=== PATIENT | female | born 1940 | race Hispanic/Latino ===

== ENCOUNTER 2018-12-23 12:00 | Observation (INO) | payer MEDICARE ==
[~2018-12-23] VITALS: Ht 151.1 cm; Wt 57.8 kg
[2018-12-23 11:39] LABS: BASOPHILS % (AUTO) 0.8 % (0.0-5.0); EOSINOPHILS % (AUTO) 1.4 % (0.0-8.0); HEMATOCRIT 37.9 % (36-48); LYMPHOCYTES % (AUTO) 33.7 % (21.0-51.0); MEAN CORPUSCULAR HEMOGLOBIN 29.2 pg (27.0-33.0); MEAN CORPUSCULAR HGB CONC 33.2 g/dL (32.0-36.0); MEAN CORPUSCULAR VOLUME 87.9 fL (79-99); NEUTROPHILS % (AUTO) 57.1 % (40.0-77.0); PLATELET COUNT (AUTO) 277 K/uL (130-400); RED BLOOD CELL COUNT(AUTO) 4.32 MIL/uL (4.00-5.50); WHITE BLOOD COUNT (AUTO) 6.3 K/uL (4.8-10.8)
[2018-12-23 11:51] LABS: CREATININE 0.9 mg/dL (0.5-1.5); POTASSIUM 4.4 mmol/L (3.5-5.1)
[2018-12-23 12:19] VITALS: BP 106/51
[2018-12-23] MEDS ORDERED: ATOR40TA71 PO (12:37)
[2018-12-23] MEDS ORDERED: LISI-617 PO (12:37)
[2018-12-28] VITALS (23 sets, daily range): BP systolic 100–128; BP diastolic 49–79
[2018-12-28] MEDS: CEFAZOLIN SODIUM 1 GM VIAL IVP SCH ×2 (05:00→07:30)
[2018-12-28] MEDS ORDERED: SODIUM CHLORIDE 0.9% 1000ML 1,000 ML IV ONE (06:36)
[2018-12-28] MEDS ORDERED: LIDOCAINE PF 2% 5ML ABBOJECT ONE (06:47)
[2018-12-28] MEDS ORDERED: SUCCINYLCHOLINE 200MG/10ML SYR ONE (06:47)
[2018-12-28] MEDS ORDERED: MIDAZOLAM HCL 1 MG/ML 2ML VIAL ONE (06:48)
[2018-12-28] MEDS ORDERED: PROPOFOL 10 MG/ML 20ML VIAL IV ONE (06:48)
[2018-12-28] MEDS ORDERED: GLYCOPYRROLATE 1 MG/5 ML SYRINGE ONE ×2 (06:48→12:59)
[2018-12-28] MEDS ORDERED: DEXAMETHASONE SOD PHOSPHATE 10MG/ML 1ML VIAL ONE ×2 (06:48→06:53)
[2018-12-28] MEDS ORDERED: ROCURONIUM 10MG/1ML SYR 10 MG/ML ML ONE (06:49)
[2018-12-28] MEDS ORDERED: ONDANSETRON HCL 4 MG/2 ML VIAL ONE (06:49)
[2018-12-28] MEDS ORDERED: FENTANYL CITRATE PF 50 MCG/1 ML 2ML VIAL ONE (06:49)
[2018-12-28] MEDS ORDERED: NEOSTIGMINE 5MG/5ML SYR IV ONE ×2 (06:49→10:54)
[2018-12-28] MEDS ORDERED: BUPIVACAINE/EPI/PF 0.25% 30ML VIAL IJ ONE (06:51)
[2018-12-28] MEDS ORDERED: BACITRACIN 50,000 UNIT VIAL ONE (06:52)
[2018-12-28] MEDS ORDERED: DURAMORPH PF1 MG/ML 10ML AMP IV ONE (06:52)
[2018-12-28] MEDS ORDERED: THROMBIN-JMI 20000 UNIT KIT TP ONE (06:52)
[2018-12-28] MEDS ORDERED: ROPIVACAINE 0.5% 5MG/ML 30ML IJ ONE (10:42)
[2018-12-28] MEDS ORDERED: MORPHINE SULFATE 2 MG/ML 1ML SYG IVP PRN (10:45)
[2018-12-28] MEDS ORDERED: PROMETHAZINE HCL 25 MG/ML 1ML AMPULE IM PRN (10:45)
[2018-12-28] MEDS ORDERED: CEFAZOLIN SODIUM 1 GM VIAL IVP SCH (10:45)
[2018-12-28] MEDS ORDERED: SODIUM CHLORIDE 0.9% 10 ML VIAL IVP PRN (10:45)
[2018-12-28] MEDS ORDERED: HYDROCODONE/ACETAMINOPHEN 5/325 MG TAB PO PRN (10:45)
[2018-12-28] MEDS ORDERED: ESMOLOL HCL 10 MG/ML 10 ML VIAL ONE (11:21)
--- NOTE | 2018-12-28 12:00 | NUR ---
POST OP PT ARRIVED TO FLOOR FROM PACU, PT IS AWAKE, ALERT AND ORIENTED X3, C/O SLIGHT PAIN TO BACK, REPOSITIONED FOR COMFORT. DRESSING TO BACK D/I, ELIAS IN PLACE, PENDING TO COMPRESS,F/C DRAINING CLEAR YELLOW URINE, FAMILY AT BEDSIDE PLAN OF CARE DISCUSSED, CALL LEE WITHIN REACH.
[2018-12-28] MEDS: LACTATED RINGERS 1000ML 1,000 ML IV SCH (12:25)
[2018-12-28] MEDS: DEXAMETHASONE SOD PHOSPHATE 4 MG/ML 1ML VIAL IVP SCH ×3 (12:25→22:26)
[2018-12-28] MEDS ORDERED: GLUCAGON 1MG KIT 1 MG ML IM PRN (16:00)
[2018-12-28] MEDS ORDERED: DEXTROSE 50%-WATER 50 ML DISP.SYRIN IV PRN (16:00)
[2018-12-28] MEDS: INSULIN HUMULIN R 100 UNIT/ML 3ML SQ SCH ×2 (16:30→21:00)
[2018-12-28] MEDS ORDERED: ATORVASTATIN CALCIUM 40 MG TABLET PO SCH (21:00)
[2018-12-29] MEDS: LACTATED RINGERS 1000ML 1,000 ML IV SCH (00:03)
[2018-12-29 04:00] VITALS: BP 99/54
[2018-12-29] MEDS: DEXAMETHASONE SOD PHOSPHATE 4 MG/ML 1ML VIAL IVP SCH ×2 (04:05→09:37)
[2018-12-29] MEDS: INSULIN HUMULIN R 100 UNIT/ML 3ML SQ SCH (05:09)
[2018-12-29 07:20] VITALS: BP 99/50
[2018-12-29] MEDS ORDERED: LISINOPRIL 5 MG TABLET PO SCH (09:00)
--- NOTE | 2018-12-29 10:07 | NUR ---
BP=99/50 HELD LISINOPRIL. NOTIFIED PATIENT AND EXPLAINED REASON. INSTRUCTED TO CHECK BP AT HOME TODAY AND TAKE IF SBP>100.
--- NOTE | 2018-12-29 17:57 | NUR ---
PT HERE FOR SCHEDULED SHORT STAY PROCEDURE- NO TRIGGERS TO CM, NO CONCERNS VOICED BY PT OR [employer]IDENT OF [place] DETAILED CM ASSESSMENT DEFERRED AT THIS TIME Addendum: 12/29/18 at 1800 by KIM HORN RN CM Amended: Links added.
== END 2018-12-29 13:20 | disposition home or self-care (01) ==
LOC: EDSTATUS 12:00 → DAHIP 12-28 06:05 → 4BH 12-28 11:50
PROVIDERS: ADMIT Neurological Surgery; ATTEND Neurological Surgery
DX: M48.061 Spinal stenosis, lumbar region without neurogenic claudication (principal); Z79.899 Other long term (current) drug therapy
CPT/HCPCS: 36415; 63047; 63048 ×2; 72020; 80048; 82948 ×5; 85025; 96374; 96375 ×2; 96376 ×2; A4215; A4221; A4222; A4223; A4344; A4510; A4600; A4649 ×4; A4663; G0378 ×25; J0330; J0690 ×2; J1100 ×6; J2001; J2250; J2274; J2405; J2704; J2710 ×2; J2795; J3010; J3490 ×4; J7030 ×2; J7120 ×3